=== PATIENT | female | born 1975 | race Caucasian/White ===

== ENCOUNTER 2021-09-10 06:03 | Inpatient (IN) ==
[2021-09-10] MEDS ORDERED: Ringers Solution, Lactated 1,000 ML IVC SCH ×2 (06:30→11:15)
[2021-09-10] MEDS ORDERED: *HR* Propofol 200 MG/20 ML VIAL IVP ONE ×2 (07:01→07:02)
[2021-09-10] MEDS ORDERED: *HR* Midazolam HCl 2 MG/2 ML VIAL ONE (07:01)
[2021-09-10] MEDS ORDERED: *HR* FentaNYL (PF) 100 MCG/2 ML VIAL ONE (07:01)
[2021-09-10] MEDS ORDERED: Ondansetron 4 MG/2 ML VIAL ONE (07:02)
[2021-09-10] MEDS ORDERED: Lidocaine -MPF 2% 5 ML VIAL ONE (07:02)
[2021-09-10] MEDS ORDERED: *HR* Rocuronium Bromide 50 MG/5 ML VIAL ONE ×2 (07:02→08:13)
[2021-09-10] MEDS ORDERED: Pregabalin 75 MG CAPSULE PO ONE (07:19)
[2021-09-10] MEDS ORDERED: *HR* HYDROmorphone PF 0.5 MG/0.5 ML SYRINGE IVP PRN (07:19)
[2021-09-10] MEDS ORDERED: *HR* Labetalol 20 MG/4 ML SYRINGE IVP PRN (07:19)
[2021-09-10] MEDS ORDERED: *HR* HYDROmorphone 2 MG TABLET PO PRN (07:19)
[2021-09-10] MEDS ORDERED: Famotidine 20 MG/2 ML VIAL IVP ONE (07:19)
[2021-09-10] MEDS ORDERED: *HR* OxyCODONE Immed Rel 5 MG TABLET PO PRN (07:19)
[2021-09-10] MEDS ORDERED: Scopolamine Patch 1.5 MG PATCH.TD72 TD ONE (07:19)
[2021-09-10] MEDS ORDERED: Acetaminophen IV 1,000 MG/100 ML BAG IVPB ONE (07:19)
[2021-09-10] MEDS ORDERED: Promethazine 6.25 MG in Water for inj. (sterile) 20 ML IVPB PRN (07:22)
[2021-09-10] MEDS ORDERED: CeFAZolin Syr 2,000MG/20 ML 2,000 MG/20 ML SYRINGE IVPB ONE (07:30)
[2021-09-10] MEDS ORDERED: Ketamine HCL *QUVA* 50mg (1mL) SYRINGE ONE (08:14)
[2021-09-10] MEDS ORDERED: Sugammadex Sodium 200 MG/2 ML VIAL IV ONE (09:38)
[2021-09-10] MEDS ORDERED: Ketorolac 30 MG/ML VIAL IVP ONE (10:00)
[2021-09-10] MEDS ORDERED: Ergocalciferol (VIT D2) 50,000 UNIT (1.25MG) CAP PO SCH (11:15)
[2021-09-10] MEDS ORDERED: Naloxone 0.4 MG/ML INJ IVP PRN (11:15)
[2021-09-10] MEDS ORDERED: Ibuprofen 600 MG TABLET PO PRN (11:15)
[2021-09-10] MEDS ORDERED: Ondansetron 4 MG/2 ML VIAL IVP PRN (11:15)
[2021-09-10] MEDS: *HR* OxyCODONE/APAP 5/325 TABLET PO PRN ×2 (15:27→22:31)
[2021-09-10] MEDS: FLUoxetine 20 MG CAPSULE PO SCH (19:45)
[2021-09-10] MEDS: lamoTRIgine 100 MG TABLET PO SCH (19:45)
[2021-09-11] MEDS: lamoTRIgine 100 MG TABLET PO SCH (07:57)
[2021-09-11] MEDS: FLUoxetine 20 MG CAPSULE PO SCH (07:57)
[2021-09-11 08:03] VITALS: BP 108/60; PULSE 65; TEMP 97.6; O2SAT 97
[2021-09-11] MEDS: *HR* OxyCODONE/APAP 5/325 TABLET PO PRN (08:21)
== END 2021-09-11 09:00 | disposition home or self-care (01) | DRG 743 ==
LOC: SAMDAY 06:03 → 1NENUOBS 11:10 → 1NENUPED 19:14
PROVIDERS: ADMIT Student in an Organized Health Care Education/Training Program; ATTEND Student in an Organized Health Care Education/Training Program